=== PATIENT | female | born 1970 | race Caucasian/White ===

== ENCOUNTER 2017-11-29 10:51 | Emergency (ER) | payer OTHER ==
[~2017-11-29 10:51] MED LIST: ALBUTEROL0.09 MG/A1 INH; BACTROBAN OINT.15 GM TOP; BENTYL20 MG PO; ENDOCET 325 MG-1 TA1 PO; FLONASE120 SPRAY/ NASB; LEVSIN/SL0.125 MG SL; MUCINEX1200 MG PO; NAPROSYN500 M1 PO; PEPCID40 MG PO; PERCOCET 325 MG1 TA2 PO; PERCOCET 5-3251 EACH PO; PREDNICOT20 MG PO; PRILOSEC20 MG PO; PROAIR HFA0.09 MG/Ac INH; PROAIR HFA8.5 GM INH; REGLAN10 MG PO; ROBAXIN500 M1 PO; ZOFRAN4 M1 SL
[2017-11-29 10:58] VITALS: BP 153/82
--- NOTE | 2017-11-29 12:12 | ED GENERAL ADULT ---
History of Present Illness General Chief Complaint: Low Back Pain/Injury Stated Complaint: LBP Source: patient Exam Limitations: no limitations Vital Signs & Intake/Output Vital Signs & Intake/Output Vital Signs Date Time Temp Pulse Resp B/P B/P Pulse O2 O2 Flow FiO2 Mean Ox Delivery Rate 11/29 1058 97.6 88 153/82 99 Allergies Coded Allergies: poison arnaldo extract (Severe, RASH 11/29/17) poison oak extract (Severe, RASH 11/29/17) poison sumac extract (Severe, RASH 11/29/17) Reconcile Medications Albuterol Sulfate (Proair Hfa) 90 MCG HFA.AER.AD 2 PUF INH Q4-6 PRN PRN ASTHMA (Reported) Cyclobenzaprine HCl 10 MG TABLET 1 TAB PO BID PRN PAIN Fluticasone/Salmeterol (Advair 250-50 Diskus) 250 MCG-50 MCG/DOSE BLST.W.DEV 1 PUF INH BID ASTHMA (Reported) Ibuprofen 600 MG TABLET 1 TAB PO TID PAIN with food Oxycodone HCl/Acetaminophen (Percocet 5-325 MG Tablet) 5 MG-325 MG TABLET 1 TAB PO BID PAIN Triage Note: PER PT "HURT BACK AGAIN" DO IT TWICE A YR TOOK 2 IBUPROFEN WITHOUT EFFECT HURT IT THIS AM PT REPORTS GOING THRU [facility] 6 MONTHS AGO Triage Nurses Notes Reviewed? yes Onset: Abrupt Duration: hour(s): Timing: recent history HPI: 11/29/17 1 PM 47-year-old female presents to the emergency department complaining of severe low back pain. The patient states she has a history of back pain. She says she was bending over to pick something up this morning prior to work and developed severe low back pain. She then went to work and was unable to continue due to low back pain. She denies any bowel or bladder dysfunction no lower extremity weakness. Past History Travel History Traveled to [place] past 21 day No Medical History Any Pertinent Medical History? 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 No Review of Systems Review of Systems Constitutional: Denies: fever. EENTM: Reports: no symptoms. Respiratory: Denies: short of breath. Cardiovascular: Denies: chest pain. GI: Denies: abdominal pain. Genitourinary: Reports: no symptoms. Musculoskeletal: Reports: back pain. Skin: Denies: rash. Neurological/Psychological: Reports: no symptoms. Hematologic/Endocrine: Reports: no symptoms. Immunologic/Allergic: Reports: no symptoms. Physical Exam Physical Exam General Appearance: well developed/nourished, alert, awake, anxious, moderate distress Head: atraumatic, normal appearance Eyes: Bilateral: normal appearance, PERRL, EOMI. Ears, Nose, Throat: normal pharynx, normal ENT inspection Neck: normal inspection, supple, limited range of motion Respiratory: normal breath sounds, chest non-tender, no respiratory distress Cardiovascular: regular rate/rhythm Peripheral Pulses: 4+ radial (R), 4+ radial (L) Gastrointestinal: non-tender Back: decreased range of motion Extremities: normal inspection Neurologic/Psych: no motor/sensory deficits, awake, alert, oriented x 3 Skin: intact, normal color, warm/dry Core Measures ACS in differential dx? No CVA/TIA Diagnosis: No Sepsis Present: No Sepsis Focused Exam Completed? No Progress Differential Diagnoses I considered the following diagnoses in my evaluation of the patient: [Lumbar strain, disc herniation, sciatica, epidural abscess,] Plan of Care: Current Medications Sig/Ortega Start time Last Medication Dose Stop Time Status Admin Cyclobenzaprine HCl 10 MG ONCE ONE 11/29 1315 AC 11/29 (Flexeril 10MG Tab) 11/29 1316 1307 Ketorolac 60 MG ONCE ONE 11/29 1315 AC 11/29 Tromethamine 11/29 1316 1307 (Toradol) Initial ED EKG: none Departure Departure Disposition: HOME OR SELF CARE Condition: Stable Clinical Impression Primary Impression: Lumbar strain Referrals: Britany POOL,Fernando Sotelo (PCP/Family) Departure Forms: Customer Survey General Discharge Information Prescriptions: Current Visit Scripts Oxycodone HCl/Acetaminophen (Percocet 5-325 MG Tablet) 1 TAB PO BID #10 TAB Cyclobenzaprine HCl 1 TAB PO BID PRN PAIN #20 TAB Ibuprofen 1 TAB PO TID #20 TAB with food Comments The patient was treated with IM Toradol and Flexeril in the ED. She was physically bent over initially and had bilateral paralumbar pain and tenderness due to strain. She was able to ambulate after the medications. She will follow -up with her doctor next week. Critical Care Note Critical Care Note Critical Care Time: non-applicable
[2017-11-29] MEDS ORDERED: ADVAIR 250-501 EACH INH (12:41)
[2017-11-29] MEDS ORDERED: PERCOCET 5-3251 EACH PO (13:08)
[2017-11-29] MEDS ORDERED: IBUPROFEN600 M1 PO (13:08)
[2017-11-29] MEDS ORDERED: CYCLOBENZAPRINE10 M1 PO (13:08)
== END 2017-11-29 13:12 ==
LOC: ERH 10:51
DX: S39.012A Strain of muscle, fascia and tendon of lower back, initial encounter (principal); X58.XXXA Exposure to other specified factors, initial encounter; Y92.9 Unspecified place or not applicable; Y93.9 Activity, unspecified
CPT/HCPCS: 96372; J1885